=== PATIENT | female | born 1980 | race Caucasian/White ===

== ENCOUNTER 2016-08-10 06:53 | Emergency (ER) | payer OTHER ==
[2016-08-10] MEDS ORDERED: SODIUM CHLORIDE 1,000 ML IV STA (07:16)
[2016-08-10] MEDS ORDERED: ACETAMINOPHEN 1000 MG/100 ML VIAL (NON FORMULARY) IVPB ONE (07:16)
[2016-08-10] MEDS ORDERED: METOCLOPRAMIDE HCL INJECTION 10 MG/2 ML VIAL IVPB ONE (07:16)
--- NOTE | 2016-08-10 07:19 | PDOC ---
History of Present Illness - General History Source: Patient, Old Records Exam Limitations: No Limitations - History of Present Illness Initial Comments: 08/10/16 07:43 The patient is a 35 year old female who is 15 weeks , with no significant past medical history, who presents to the emergency department with a headache for the past 4 days. She describes her headache as diffused throughout her head. She notes that the headache started off gradually and intermittent in nature but has progressed in intensity and is currently constant. She states that the last time she took tylenol was yesterday with minimal relief of her symptoms. She currently rates her pain a 8/10 in severity. She denies any history of migraine or any family history of the same. The patient denies chest pain, shortness of breath, and dizziness. Denies fever , chills, nausea, vomit, diarrhea and constipation. Denies dysuria, frequency, urgency and hematuria. Allergies: None Past surgical history: None reported Social history: No alcohol, tobacco or drug use reported <Rosales Gordon - Last Filed: 08/10/16 07:43> - General History Source: Patient Exam Limitations: No Limitations <Blayne Fang - Last Filed: 08/10/16 09:29> - General Stated Complaint: HEADACHE (15 WEEKS ) Time Seen by Provider: 08/10/16 07:10 Past History <Rosales Gordon - Last Filed: 08/10/16 07:43> - Past Medical History Anemia: No Asthma: No Cancer: No Cardiac Disorders: No CVA: No COPD: No CHF: No Dementia: No Diabetes: No GI Disorders: No Disorders: No HTN: No Hypercholesterolemia: No Liver Disease: No Seizures: No Thyroid Disease: No - Surgical History Abdominal Surgery: No Appendectomy: No Cardiac Surgery: No Cholecystectomy: No Lung Surgery: No Neurologic Surgery: No Orthopedic Surgery: No - Psycho/Social/Smoking Cessation Hx Anxiety: No Suicidal Ideation: No Smoking Status: No Smoking History: Never smoked Number of Cigarettes Smoked Daily: 0 Hx Alcohol Use: No Drug/Substance Use Hx: No <Blayne Fang - Last Filed: 08/10/16 09:29> - Past Medical History Allergies/Adverse Reactions: Allergies Allergy/AdvReac Type Severity Reaction Status Date / Time No Known Allergies Allergy Verified 08/10/16 07:46 Home Medications: Ambulatory Orders Acetaminophen [Tylenol] 650 mg PO Q4H PRN #20 tablet 08/10/16 Metoclopramide HCl [Reglan] 10 mg PO Q6H PRN #15 tablet 08/10/16 Review of Systems - Review of Systems Able to Perform ROS?: Yes Comments:: 08/10/16 07:43 GENERAL/CONSTITUTIONAL: No fever or chills. No weakness. HEAD, EYES, EARS, NOSE AND THROAT: No change in vision. No ear pain or discharge. No sore throat. CARDIOVASCULAR: No chest pain or shortness of breath RESPIRATORY: No cough, wheezing, or hemoptysis. GASTROINTESTINAL: No nausea, vomiting, diarrhea or constipation. GENITOURINARY: No dysuria, frequency, or change in urination. MUSCULOSKELETAL: No joint or muscle swelling or pain. No neck or back pain. SKIN: No rash NEUROLOGIC: (+) Headache. No vertigo, loss of consciousness, or change in strength/sensation. ENDOCRINE: No increased thirst. No abnormal weight change HEMATOLOGIC/LYMPHATIC: No anemia, easy bleeding, or history of blood clots. ALLERGIC/IMMUNOLOGIC: No hives or skin allergy. <Rosales Gordon - Last Filed: 08/10/16 07:43> *Physical Exam - Physical Exam Comments: 08/10/16 07:44 GENERAL: Awake, alert, and fully oriented, in no acute distress HEAD: No signs of trauma, normocephalic, atraumatic EYES: PERRLA, EOMI, sclera anicteric, conjunctiva clear ENT: Auricles normal inspection, hearing grossly normal, nares patent, oropharynx clear without exudates. Moist mucosa NECK: Normal ROM, supple, no lymphadenopathy, JVD, or masses LUNGS: No distress, speaks full sentences, clear to auscultation bilaterally HEART: Regular rate and rhythm, normal S1 and S2, no murmurs, rubs or gallops, peripheral pulses normal and equal bilaterally. ABDOMEN: Soft, nontender, normoactive bowel sounds. No guarding, no rebound. No masses EXTREMITIES: Normal inspection, Normal range of motion, no edema. No clubbing or cyanosis. NEUROLOGICAL: Cranial nerves II through XII intact. Normal speech, normal gait , no focal sensorimotor deficits. No pronator drift, negative cerebellar signs. 5/5 strength in upper and lower extremities. SKIN: Warm, Dry, normal turgor, no rashes or lesions noted. <Rosales Gordon - Last Filed: 08/10/16 07:43> ED Treatment Course - LABORATORY CBC & Chemistry Diagram: 08/10/16 07:40 08/10/16 07:40 - Medications Given in the ED: ED Medications Discontinued Medications Generic Name Dose Route Start Last Admin Trade Name Shakir PRN Reason Stop Dose Admin Acetaminophen 1,000 mg 08/10/16 07:16 08/10/16 07:41 Ofirmev Injection - IVPB 08/10/16 07:17 1,000 mg ONCE ONE Administration Metoclopramide HCl 10 mg 08/10/16 07:16 08/10/16 07:41 Reglan Injection - IVPB 08/10/16 07:17 10 mg ONCE ONE Administration <Rosales Gordon - Last Filed: 08/10/16 07:43> - LABORATORY CBC & Chemistry Diagram: 08/10/16 07:40 08/10/16 07:40 <Blayne Fang - Last Filed: 08/10/16 09:29> Medical Decision Making - Medical Decision Making 08/10/16 07:17 A portion of this note was documented by scribe services under my direction. I have reviewed the details of the note, within reason, and agree with the documentation with the following case summary and management plan written by me. Patient treated in the ED. Nursing notes are reviewed and incorporated into the medical decision-making. Vital signs reviewed. Peripheral IV access obtained by the nurse, laboratory studies are drawn and sent, reviewed and interpreted by myself. 35-year-old female with no past medical history, approximately 15 weeks , presents with headache for 4 days. Patient reports that she had developed intermittent gradual pounding-like headache with no neck stiffness or fevers. Denies photophobia or phonophobia. Stated the headache has gotten more persistent and constant. She had vomited once several days ago but denies nausea now. Denies neck stiffness. Denies history of migraines. She denies worst headache of life. I will treat as a migrainous-like headache at this time and reassess. I have low suspicion for subarachnoid hemorrhage or meningitis at this time. Medications, IV fluids and reassess. 08/10/16 09:25 CBC, BMP 08/10/16 07:40 08/10/16 07:40 CBC cancelled by me as patient now reports feeling tremendously better and tube misplaced at lab. At this point, will not draw a second CBC for this as patient is likely with migraines. Given her headaches is resolved, we'll discharge patient home. We'll give referral to neurology. I discussed the physical exam findings, ancillary test results and final diagnoses with the patient. I answered all of the patient's questions. The patient was satisfied with the care received and felt comfortable with the discharge plan and treatment plan. The patient will call their primary care physician within 24 hours to arrange follow-up and will return to the Emergency Department with any new, persistant or worsening symptoms. <Blayne Fang - Last Filed: 08/10/16 09:29> *DC/Admit/Observation/Transfer - Attestations Scribe Attestion: 08/10/16 07:44 Documentation prepared by Rosales Gordon, acting as medical education specialist for Blayne Fang MD <Rosales Gordon - Last Filed: 08/10/16 07:43> - Discharge Dispostion Admit: No <Blayne Fang - Last Filed: 08/10/16 09:29> Diagnosis at time of Disposition: Headache Qualifiers: Headache type: unspecified Headache chronicity pattern: acute headache Intractability: not intractable Qualified Code(s): R51 - Headache - Discharge Dispostion Disposition: HOME Condition at time of disposition: Improved - Prescriptions Prescriptions: Metoclopramide HCl [Reglan] 10 mg PO Q6H PRN #15 tablet PRN Reason: Headache Acetaminophen [Tylenol] 650 mg PO Q4H PRN #20 tablet PRN Reason: Headache - Referrals Referrals: Sonya Arnold MD [Primary Care Provider] - Tad Anderson MD [Staff Physician] - - Patient Instructions Printed Discharge Instructions: DI for Headache Additional Instructions: Please take 650 mg tylenol every 4 hours as needed for headache. Please take 10 mg reglan every 6 to 8 hours as needed for nausea/severe headache. Drink plenty of fluids and rest. Follow up with your doctor. Make an appointment with a neurologist.
[2016-08-10] MEDS ORDERED: METOCLOPRAMIDE HCL INJECTION 10 MG/2 ML VIAL ONE (07:20)
[2016-08-10] MEDS ORDERED: ACETAMINOPHEN INJECTION 100 ML IVPB ONE (07:20)
[2016-08-10 07:46] VITALS: TEMP 97; BMI 36.3
[2016-08-10 08:20] LABS: ALBUMIN 3.1 g/dl (3.4-5.0); ALK PHOS 74 U/L (45-117); ANION GAP 8 (8-16); BILIRUBIN,TOTAL 0.1 mg/dL (0.2-1.0); CALCIUM 9.8 mg/dL (8.5-10.1); CO2 27 mmol/L (21-32); COCKROFT - GAULT 233.8605; CREATININE 0.5 mg/dL (0.55-1.02); GLUCOSE,RANDOM 97 mg/dL (74-106); SGOT/AST 26 U/L (15-37); SGPT/ALT 40 U/L (12-78); TOT PROT 6.6 g/dl (6.4-8.2)
[2016-08-10 09:54] VITALS: BP 125/48; PULSE 76
== END 2016-08-10 09:54 | disposition home or self-care (01) ==
LOC: JER 06:53
PROC: 3E033NZ Introduction of Analgesics, Hypnotics, Sedatives into Peripheral Vein, Percutaneous Approach (ICD-10-PCS; principal; 2016-08-10)
PROC: 3E033GC Introduction of Other Therapeutic Substance into Peripheral Vein, Percutaneous Approach (ICD-10-PCS; 2016-08-10)
PROC: 3E0337Z Introduction of Electrolytic and Water Balance Substance into Peripheral Vein, Percutaneous Approach (ICD-10-PCS; 2016-08-10)
DX: O26.892 Other specified pregnancy related conditions, second trimester (principal); R51 Headache; Z3A.15 15 weeks gestation of pregnancy
CPT/HCPCS: 36415; 80053; 99282-25